=== PATIENT | female | born 1945 | race Caucasian/White ===

== ENCOUNTER 2019-03-15 13:26 | Inpatient (IN) | payer MEDICARE ==
[~2019-03-15] VITALS: Ht 157.5 cm; Wt 70.0 kg
[~2019-03-15 13:26] MED LIST: ADALAT CC60 MG PO; ATIVAN0.5 MG PO; CHERATUSSIN OR; CIPROFLOXACN500 MG PO; Levaquin OR; MEDDOSEPAK PO; PAXIL30 MG PO; PREMARIN0.625 MG PO; PROAIR HFA IN; PULMICORT180 MCG IN; ROBITUSSIN AC10 ML PO; ROCEPHIN 1 GM1 GM IM; SIMVASTATIN40 MG PO; SYMBICORT1 AE1 IN; TESSALON PER100 MG PO
--- NOTE | 2019-03-15 14:05 | NUR ---
PT IN NO DISTRESS IN TRIAGE, RESP EVEN AND UNLABORED. WHEN PT MOVING ABOUT TO GET IN TO BED AND GOWN, BECAME DYSPNEIC AND O2 SAT DIPPED INTO MID 80'2. O2 APPLIED, EDP NOTIFIED AND NEB TX STARTED
--- NOTE | 2019-03-15 14:50 | NUR ---
PT TO RADIOLOGY AT THIS TIME VIA WC IN STABLE CONDITION
--- NOTE | 2019-03-15 15:11 | NUR ---
PT MEDICATED WITH TYLENOL AND MOTRIN PER MAR FOR TEMP; IVF INFUSING; WILL CONTINUE TO MONITOR
[2019-03-15 15:43] LABS: HEMATOCRIT 44.8 % (37.0-47.0); HEMOGLOBIN 14.3 g/dl (12.0-16.0); IMMATURE GRANULOCYTES 0.2 % (0.0-5.0); MEAN CELL VOLUME 96.8 fL CALC (80.0-100.0); MEAN CORPUSCULAR HGB 30.9 pG CALC (26.0-32.0); MEAN CORPUSCULAR HGB CONC 31.9 g/L CALC (32.0-36.0); NEUT# 7.32 thou/uL (2.00-7.15); RED BLOOD COUNT 4.63 mill/uL (4.20-5.60); RED CELL DISTRI WIDTH 12.4 % (11.5-15.5)
--- NOTE | 2019-03-15 15:59 | NUR ---
[facility] LOWERY AT BEDSIDE TO DISCUSS POC AND FINDINGS; VSS WILL CONTINUE TO MONITOR
[2019-03-15 16:09] LABS: ALBUMIN 4.3 g/dL (3.2-5.0); ALKALINE PHOSPHATASE 303 u/l (38-126); ANION GAP 19 (6-22 (CALC)); BILIRUBIN, TOTAL 1.1 mg/dL (0.0-1.4); BUN 10 mg/dL (8-23); BUN/CREATININE RATIO 19 (12-20 (CALC)); CARBON DIOXIDE 21 mmol/l (22-30); CHLORIDE 102 mmol/l (95-108); CREATININE 0.5 mg/dL (0.5-1.0); GFR > 60 ML/MIN (>=60 (CALC)); GFR FOR AFR.AMER. > 60 ML/MIN (>=60 (CALC)); POTASSIUM 5.1 mmol/l (3.5-5.1); SGOT/AST 128 u/l (9-36); SODIUM 137 mmol/l (137-146); TOTAL PROTEIN 7.8 g/dL (6.3-8.2)
--- NOTE | 2019-03-15 17:00 | NUR ---
PT ADVISED OF POC AND PLAN TO ADMIT; PT VERBALIZES UNDERSTANDING; VSS; WILL CONTINUE TO MONITOR
[2019-03-15 17:10] LABS: URINE BILIRUBIN - DIPSTICK NEGATIVE (NEGATIVE); URINE BLOOD DIPSTICK TRACE-INTACT (NEGATIVE); URINE COLOR YELLOW; URINE GLUCOSE - DIPSTICK NEGATIVE (NEGATIVE); URINE KETONE TRACE mg/dL (NEGATIVE); URINE LEUK ESTERASE NEGATIVE (NEGATIVE); URINE NITRITE - DIPSTICK NEGATIVE (Negative); URINE PROTEIN - DIPSTICK NEGATIVE (NEG-TRACE); URINE SPECIFIC GRAVITY >=1.030; URINE UROBILINOGEN - DIPSTICK 0.2 E.U./dL (0.2)
--- NOTE | 2019-03-15 18:00 | NUR ---
PT SITTING UP ON STRETCHER; O2 NC IN PLACE; MONITORING DEVICES IN PLACE; PT C/O FEELING TIRED BUT NOT ABLE TO SLEEP; VSS WILL CONTINUE TO MONITOR
--- NOTE | 2019-03-15 19:00 | NUR ---
REPORT GIVEN TO GIA JJ; ATTEMPTED TO CALL REPORT TO [facility]
--- NOTE | 2019-03-15 19:21 | NUR ---
REPORT TO GIA CABRAL
--- NOTE | 2019-03-15 20:20 | NUR ---
PT TRANSPORTED TO [facility] RM 269 ON O2 VIA STRETCHWER WITH FACE MASK IN STABLE CONDITIOPN
[2019-03-15 20:30] VITALS: BP 133/83
--- NOTE | 2019-03-15 20:36 | NUR ---
PT ARRIVED TO THE FLOOR VIA STRETCHER ACCOMPANIED BY ED STAFF, PT IS ALERT AND ORIENTED. PT SOB. PT AMBULATED FROM STRETCHER TO BED. PT ASSISTED TO THE BATHROOM AND BACK TO BED. VS OBTAINED AND ASSESSMENT COMPLETED. PT REPORTS FEELING ANXIOUS, MD TO BE NOTIFIED. WHEEZES NOTED THROUGH OUT LUNGS. PEDAL PULSES WEAK. PT DENIES ANY PAIN AT THIS TIME. CALL RESENDIZ WITHIN REACH. PT ORIENTED TO ROOM AND CALL RESENDIZ SYSTEM. TELE IN PLACE. WILL CONTINUE TO MONITOR.
--- NOTE | 2019-03-16 00:02 | NUR ---
PT SITTING ON THE SIDE OF THE BED. PT REPORTS USING THE TRASH CAN TO PEE IN STATING "I COULDN'T MAKE IT TO THE BATHROOM IN TIME SO I USED THE TRASH CAN." PT CLEANED UP LINENS CHANGED. SAFETY PRECAUTIONS IN PLACE. WILL CONTINUE TO MONITOR.
--- NOTE | 2019-03-16 04:07 | NUR ---
PT RESTING IN BED. RESPIRATIONS LABORED ON O2 @ 2L VIA NC. TELE IN PLACE. CALL ASTRID MCKEON. WILL CONTINUE TO MONITOR.
[2019-03-16 05:50] LABS: HEMATOCRIT 47.1 % (37.0-47.0); HEMOGLOBIN 15.2 g/dl (12.0-16.0); IMMATURE GRANULOCYTES 0.3 % (0.0-5.0); MEAN CELL VOLUME 95.7 fL CALC (80.0-100.0); MEAN CORPUSCULAR HGB 30.9 pG CALC (26.0-32.0); MEAN CORPUSCULAR HGB CONC 32.3 g/L CALC (32.0-36.0); NEUT# 8.91 thou/uL (2.00-7.15); RED BLOOD COUNT 4.92 mill/uL (4.20-5.60); RED CELL DISTRI WIDTH 12.4 % (11.5-15.5)
[2019-03-16 06:22] LABS: BUN 7 mg/dL (8-23); BUN/CREATININE RATIO 15 (12-20 (CALC)); CARBON DIOXIDE 22 mmol/l (22-30); CHLORIDE 107 mmol/l (95-108); CREATININE 0.5 mg/dL (0.5-1.0); GFR > 60 ML/MIN (>=60 (CALC)); GFR FOR AFR.AMER. > 60 ML/MIN (>=60 (CALC)); SODIUM 141 mmol/l (137-146)
[2019-03-16 06:26] LABS: ANION GAP 16 (6-22 (CALC)); POTASSIUM 3.9 mmol/l (3.5-5.1)
--- NOTE | 2019-03-16 08:00 | NUR ---
PT RESTING IN BED, NO SIGNS OF DISTRESS NOTED, RESP EVEN AND UNLABORED. PT APPEARS VERY LETHARGIC, EASILY AROUSED TO VERBAL STIMULI. PT WEARING 02 2L NC. DISCUSSED POC, PT VERBALIZED UNDERSTANDING. VSS, AUDIBLE WHEEZES HEARD. ASSESSMENT COMPLETED, CALL LIGHT IN REACH,CONTINUE TO MONITOR.
[2019-03-16 08:07] VITALS: BP 131/68
--- NOTE | 2019-03-16 10:00 | NUR ---
PT RESTING IN BED, MEDICATED PER MAR, VOICES NO NEEDS OR COMPLAINTS AT THIS TIME, CALL LIGHT IN REACH,CONTINUE TO MONITOR.
--- NOTE | 2019-03-16 14:30 | NUR ---
PT RESTING IN BED, NO SIGNS OF DISTRESS NOTED, RESP EVEN AND UNLABORED. IV ZITHROMYCIN INITIATED. PT VOICES NO NEEDS OR COMPLAINTS AT THIS TIME. CALL LIGHT IN REACH,CONTINUE TO MONITOR.
[2019-03-16 15:59] VITALS: BP 105/69
--- NOTE | 2019-03-16 18:20 | NUR ---
PT OUT OF SHOWER, IVF CONTINUED, PT VOICES NO NEEDS OR COMPLAINTS AT THIS TIME, CALL LIGHT IN REACH,CONTINUE TO MONITOR.
[2019-03-16 18:35] VITALS: BP 126/77
--- NOTE | 2019-03-16 21:14 | NUR ---
PT RESTING IN BED. ALERT AND ORIENTED. RESPIRATIONS EVEN AND UNLABORED ON O2 @L 2L VIA NC. PEDAL PULSES STRONG. PT DENIES ANY PAIN OR DISCOMFORT AT THIS TIME. TELE IN PLACE. PT PROVIDED WITH A BLANKET PER REQUEST. SAFETY PRECAUTIONS IN PLACE. WILL CONTINUE TO MONITOR.
[2019-03-16 23:20] VITALS: BP 99/55
--- NOTE | 2019-03-17 00:19 | NUR ---
PT RESTING IN BED, RESPIRATIONS EVEN AND UNLABORED ON O2 @ 2L VIA NC. TELE IN PLACE. CALL RESENDIZ WITHIN REACH WILL CONTINUE TO MONITOR
[2019-03-17 03:43] VITALS: BP 105/63
--- NOTE | 2019-03-17 03:58 | NUR ---
PT RESTING IN BED. RESPIRATIONS EVEN AND UNLABORED ON O2 @ 2L VIA NC. TELE IN PLACE. WILL CONTINUE TO MONITOR.
[2019-03-17 05:38] LABS: ALKALINE PHOSPHATASE 206 u/l (38-126); BUN 8 mg/dL (8-23); BUN/CREATININE RATIO 21 (12-20 (CALC)); CHLORIDE 106 mmol/l (95-108); CREATININE 0.4 mg/dL (0.5-1.0); GFR > 60 ML/MIN (>=60 (CALC)); GFR FOR AFR.AMER. > 60 ML/MIN (>=60 (CALC)); POTASSIUM 3.4 mmol/l (3.5-5.1); SGOT/AST 73 u/l (9-36); SODIUM 140 mmol/l (137-146)
[2019-03-17 06:10] LABS: ANION GAP 10 (6-22 (CALC)); BILIRUBIN, TOTAL 0.4 mg/dL (0.0-1.4); CARBON DIOXIDE 27 mmol/l (22-30); TOTAL PROTEIN 5.7 g/dL (6.3-8.2)
[2019-03-17 08:00] VITALS: BP 126/60
--- NOTE | 2019-03-17 08:00 | NUR ---
ASLEEP ON ROUNDS, AWAKENS TO NAME. RESP NON-LABORED AT REST. BREATH SOUNDS WITH WHEEZES THROUGHOUT LUNG BOO. PATIENT UP TO USE BSC, DYSPNEIC WITH EXERTION WITH FAINT AUDIBLE WHEEZE. RECOVERS QUICKLY WITH REST. IV IN LH WITH NS INFUSING AT 80 ML/HR, SITE HEALTHY. DISCUSSED PLAN OF CARE. DENIES NEEDS AT THIS TIME. CALL RESENDIZ IN REACH.
[2019-03-17 11:00] VITALS: BP 129/72
--- NOTE | 2019-03-17 12:30 | NUR ---
RESTING IN BED. UP TO BSC INDEPENDENTLY VOIDING QS. REMAINS ON DROPLET ISOLATION. PATIENT NAPPIN LUKASZ AND OFF.
[2019-03-17 14:50] VITALS: BP 110/59
--- NOTE | 2019-03-17 16:05 | NUR ---
NAPPING MOST OF THE AFTERNOON. NO COMPLAINTS VOICED. IV SITE BENIGN IN LH.
[2019-03-17 18:39] VITALS: BP 111/65
--- NOTE | 2019-03-17 19:15 | NUR ---
REPORT RECEIVED FROM GIA JAFFE. PT RESTING IN BED. NO S/S OF DISTRESS AT THIS TIME. SAFETY PRECAUTIONS IN PLACE. WILL CONTINUE TO MONITOR.
--- NOTE | 2019-03-17 22:15 | NUR ---
PT RESTING IN BED. RESPIRATIONS EVEN AND UNLABORED ON O2 @ 2L VIA NC. WHEEZES NOTED THROUGH OUT LUNGS. PEDAL PUSLE STRONG. PT DENIES ANY PAIN OR DISCOMFORT AT THIS TIME. SAFETY PRECAUTIONS IN PLACE. WILL CONTINUE TO MONITOR.
[2019-03-17 23:52] VITALS: BP 111/61
--- NOTE | 2019-03-18 01:05 | NUR ---
PT UP TO BSC, PT ENCOURAGED TO CALL FOR ASSISTANCE IF NEEDED. SAFETY PRECAUTIONS IN PLACE. WILL CONTINUE TO MONITOR.
--- NOTE | 2019-03-18 03:58 | NUR ---
PT RESTING IN BED RESPIRATIONS EVEN AND UNABORED ON O2 @ 2L VIA NC. TELE IN PLACE. CALL RESENDIZ WITHIN REACH. WILL CONTINUE TO MONITOR.
[2019-03-18 04:01] VITALS: BP 138/74
[2019-03-18 05:57] LABS: ANION GAP 15 (6-22 (CALC)); BUN 8 mg/dL (8-23); BUN/CREATININE RATIO 22 (12-20 (CALC)); CARBON DIOXIDE 27 mmol/l (22-30); CHLORIDE 103 mmol/l (95-108); CREATININE 0.3 mg/dL (0.5-1.0); GFR > 60 ML/MIN (>=60 (CALC)); GFR FOR AFR.AMER. > 60 ML/MIN (>=60 (CALC)); MAGNESIUM 1.6 mg/dL (1.6-2.3); POTASSIUM 3.3 mmol/l (3.5-5.1); SODIUM 142 mmol/l (137-146)
--- NOTE | 2019-03-18 08:00 | NUR ---
SITTING UP IN BED EATING BREAKFAST. NO COMPLAINTS VOICED AT THIS TIME. DISCUSSED PLAN OF CARE. CALL ASTRID IN [facility].
[2019-03-18 09:00] VITALS: BP 157/74
--- NOTE | 2019-03-18 09:00 | NUR ---
RESTING IN BED. RESP UNLABORED AT REST BUT EASILY DSYPNEIC WITH LEAST EXERTION. USING O2 AT 2 L NC. BREATH SOUNDS CONTINUE TO REVEAL WHEEZES AND DIMINISHED BREATH SOUNDS. IV IN LH, SITE BENIGN, NS INFUSING AT 80 ML/HR. DISCUSSED FLU AND PNEUMONIA VACCINE AND PROVIDED WITH PRINTED EDUCATION MATERIAL ON BOTH. PATIENT SIGNED CONSENT FOR VACCINES.
[2019-03-18 11:23] VITALS: BP 122/70
--- NOTE | 2019-03-18 12:48 | NUR ---
RESTING IN BED. CONTINUES WITH GARCIA. SITS AT SIDE OF BED FOR MEALS. UP TO BS INDEPENDENTLY.
[2019-03-18 15:00] VITALS: BP 116/66
--- NOTE | 2019-03-18 16:30 | NUR ---
NAPPING ON AND OFF THIS AFTERNOON. HAS VISITOR NOW.
[2019-03-18 18:48] VITALS: BP 132/78
--- NOTE | 2019-03-18 19:08 | NUR ---
REPORT RECEIVED FROM GIA JAFFE. PT RESTING IN BED, NO S/S OF DISTRESS AT THIS TIME. SAFETY PRECAUTIONS IN PLACE. WILL CONTINUE TO MONITOR.
--- NOTE | 2019-03-18 20:30 | NUR ---
PT RESTING IN BED ALERT AND ORIENTED. RESPIRATIONS EVEN AND UNLABORED ON O2 @ 2L VIA NC. LUNGS SOUND DIMINISHED. PEDAL PULSES STRONG. PT DENIES ANY PAIN OR DISCOMFORT AT THIS TIME. TELE IN PLACE. CALL RESENDIZ WITHIN REACH. WILL CONTINUE TO MONITOR.
--- NOTE | 2019-03-19 00:10 | NUR ---
PT RESTING IN BED. RESPIRATIONS EVEN AND UNLABORED ON O2 @ 2L VIA NC. NO S/S OF DISTRESS AT THIS TIME. SAFETY PRECAUTIONS IN PLACE. WILL CONTINUE TO MONITOR.
[2019-03-19 00:15] VITALS: BP 130/69
[2019-03-19 03:18] VITALS: BP 114/66
--- NOTE | 2019-03-19 04:25 | NUR ---
PT RESTING IN BED. RESPIRATIONS EVEN AND UNLABORED ON O2 @ 2L VIA NC. TELE IN PLACE. WILL CONTINUE TO MONITOR.
[2019-03-19 05:13] LABS: IMMATURE GRANULOCYTES 0.3 % (0.0-5.0); MEAN CELL VOLUME 95.2 fL CALC (80.0-100.0); MEAN CORPUSCULAR HGB CONC 32.6 g/L CALC (32.0-36.0); NEUT# 4.72 thou/uL (2.00-7.15); RED BLOOD COUNT 4.19 mill/uL (4.20-5.60); RED CELL DISTRI WIDTH 12.6 % (11.5-15.5)
[2019-03-19 05:21] LABS: HEMATOCRIT 39.9 % (37.0-47.0)
[2019-03-19 05:33] LABS: ANION GAP 10 (6-22 (CALC)); BUN 9 mg/dL (8-23); BUN/CREATININE RATIO 29 (12-20 (CALC)); CARBON DIOXIDE 31 mmol/l (22-30); CHLORIDE 102 mmol/l (95-108); CREATININE 0.3 mg/dL (0.5-1.0); GFR > 60 ML/MIN (>=60 (CALC)); GFR FOR AFR.AMER. > 60 ML/MIN (>=60 (CALC)); MAGNESIUM 1.5 mg/dL (1.6-2.3); POTASSIUM 3.1 mmol/l (3.5-5.1); SODIUM 140 mmol/l (137-146)
[2019-03-19 07:20] VITALS: BP 123/69
--- NOTE | 2019-03-19 07:20 | NUR ---
ASLEEP ON ROUNDS. AWAKENS TO NAME. VSS. RESP EVEN AND UNLABORED AT REST. BREATH SOUNDS DECREASED THROUGHOUT LUNG BOO. MOIST COUGH NOTED. LFA IV SITE HEALTHY WITH NS INFUSING AT 80 ML/HR. DISCUSSED PLAN OF CARE. QUESTIONS ANSWERED REGARDING POSSIBLE DC TO HOME TODAY. CALL RESENDIZ IN REACH.
[2019-03-19 09:17] VITALS: BP 123/69
--- NOTE | 2019-03-19 12:15 | NUR ---
SITTING AT SIDE OF BED EATING LUNCH. DR YEPEZ VISITED PATIENT.
[2019-03-19] MEDS ORDERED: TAM75CAP PO (13:15)
[2019-03-19] MEDS ORDERED: LEVAQUIN750 MG PO (13:16)
[2019-03-19] MEDS ORDERED: PREDNISONE10 MG PO (13:16)
[2019-03-19] MEDS ORDERED: IPRATROPIU0.5 MG/3 M IN (15:47)
== END 2019-03-19 19:15 | disposition home or self-care (01) | DRG 871 ==
LOC: ED 13:26 → ED-I 16:56 → ED 17:04 → MS2 17:05 → ED-I 17:05 → MS2 18:49
PROVIDERS: Nurse Practitioner Family; ADMIT Internal Medicine; ATTEND Internal Medicine
PROC: 3E02340 Introduction of Influenza Vaccine into Muscle, Percutaneous Approach (ICD-10-PCS; principal; 2019-03-18)
PROC: 3E0234Z Introduction of Serum, Toxoid and Vaccine into Muscle, Percutaneous Approach (ICD-10-PCS; 2019-03-18)
DX: A41.9 Sepsis, unspecified organism (principal); J96.21 Acute and chronic respiratory failure with hypoxia; K92.1 Melena; J10.1 Influenza due to other identified influenza virus with other respiratory manifestations; R65.20 Severe sepsis without septic shock; J43.9 Emphysema, unspecified; I10 Essential (primary) hypertension; F32.9 Major depressive disorder, single episode, unspecified; E87.6 Hypokalemia; F41.9 Anxiety disorder, unspecified; E78.5 Hyperlipidemia, unspecified; Z87.891 Personal history of nicotine dependence; Z23 Encounter for immunization
CPT/HCPCS: J1650; J3475

== ENCOUNTER 2020-05-18 07:18 | Inpatient (IN) | payer MEDICARE ==
[~2020-05-18] VITALS: Ht 152.4 cm; Wt 64.8 kg
[~2020-05-18 07:18] MED LIST changes: +B121000 MC1 PO; +D32000 UNIT PO; +IPRATROPIU0.5 MG/3 M IN; +LEVAQUIN750 MG PO; +LISINOPRIL10 MG PO; +OMEPRAZOLE DR40 MG PO; +PREDNISONE10 MG PO; +TAM75CAP PO; +[UNRECOGNIZED DRUG - CODE] PO
[2020-05-18 14:00] VITALS: BP 178/89
[2020-05-18 21:24] VITALS: BP 146/68
[2020-05-18 22:00] VITALS: BP 134/72
[2020-05-19] VITALS (7 sets, daily range): BP systolic 105–150; BP diastolic 53–96
[2020-05-19 05:33] LABS: HEMOGLOBIN 12.8 g/dl (12.0-16.0); MEAN CELL VOLUME 95.8 fL CALC (80.0-100.0); MEAN CORPUSCULAR HGB 31.4 pG CALC (26.0-32.0); MEAN CORPUSCULAR HGB CONC 32.8 g/dL CAL (32.0-36.0); RED BLOOD COUNT 4.07 mill/uL (4.20-5.60)
[2020-05-19 06:06] LABS: ANION GAP 12 (6-22 (CALC)); BUN 10 mg/dL (8-23); BUN/CREATININE RATIO 24 (12-20 (CALC)); CARBON DIOXIDE 27 mmol/l (22-30); CHLORIDE 101 mmol/l (95-108); CREATININE 0.4 mg/dL (0.5-1.0); GFR > 60 ML/MIN (>=60 (CALC)); GFR FOR AFR.AMER. > 60 ML/MIN (>=60 (CALC)); MAGNESIUM 1.6 mg/dL (1.6-2.3); POTASSIUM 3.6 mmol/l (3.5-5.1); SODIUM 136 mmol/l (137-146)
[2020-05-20 01:00] VITALS: BP 108/57
[2020-05-20 03:27] VITALS: BP 109/69
[2020-05-20 05:00] VITALS: BP 109/58
[2020-05-20 05:22] LABS: HEMATOCRIT 36.8 % (37.0-47.0); HEMOGLOBIN 11.8 g/dl (12.0-16.0); IMMATURE GRANULOCYTES 1.1 % (0.0-5.0); MEAN CELL VOLUME 96.1 fL CALC (80.0-100.0); MEAN CORPUSCULAR HGB 30.8 pG CALC (26.0-32.0); MEAN CORPUSCULAR HGB CONC 32.1 g/dL CAL (32.0-36.0); NEUT# 10.16 thou/uL (2.00-7.15); RED BLOOD COUNT 3.83 mill/uL (4.20-5.60); RED CELL DISTRI WIDTH 14.3 % (11.5-15.5)
[2020-05-20 05:46] LABS: ANION GAP 7 (6-22 (CALC)); BUN 16 mg/dL (8-23); BUN/CREATININE RATIO 31 (12-20 (CALC)); CARBON DIOXIDE 32 mmol/l (22-30); CHLORIDE 103 mmol/l (95-108); CREATININE 0.5 mg/dL (0.5-1.0); GFR > 60 ML/MIN (>=60 (CALC)); GFR FOR AFR.AMER. > 60 ML/MIN (>=60 (CALC)); POTASSIUM 3.6 mmol/l (3.5-5.1); SODIUM 138 mmol/l (137-146)
[2020-05-20 07:00] VITALS: BP 113/55
[2020-05-20] MEDS ORDERED: AZITHROMYCIN500 MG PO (10:18)
[2020-05-20] MEDS ORDERED: MEDDOSEPAK PO (10:19)
[2020-05-20 13:30] VITALS: BP 148/60
== END 2020-05-20 13:30 | disposition home or self-care (01) | DRG 205 ==
LOC: ENDO 07:18 → ORM 09:35 → ENDO 09:35 → ORM 09:45 → ENDO 09:45 → ICU 12:18 → ENDO 05-19 08:59 → ICU 05-19 09:00
PROVIDERS: ADMIT Internal Medicine; ATTEND Internal Medicine
PROC: 06L38CZ Occlusion of Esophageal Vein with Extraluminal Device, Via Natural or Artificial Opening Endoscopic (ICD-10-PCS; principal; 2020-05-18)
PROC: 0DBK8ZX Excision of Ascending Colon, Via Natural or Artificial Opening Endoscopic, Diagnostic (ICD-10-PCS; 2020-05-18)
PROC: 0DBL8ZX Excision of Transverse Colon, Via Natural or Artificial Opening Endoscopic, Diagnostic (ICD-10-PCS; 2020-05-18)
PROC: 0DBN8ZX Excision of Sigmoid Colon, Via Natural or Artificial Opening Endoscopic, Diagnostic (ICD-10-PCS; 2020-05-18)
PROC: 0DBM8ZX Excision of Descending Colon, Via Natural or Artificial Opening Endoscopic, Diagnostic (ICD-10-PCS; 2020-05-18)
DX: J95.89 Other postprocedural complications and disorders of respiratory system, not elsewhere classified (principal); J96.21 Acute and chronic respiratory failure with hypoxia; I85.10 Secondary esophageal varices without bleeding; K76.6 Portal hypertension; T17.908A Unspecified foreign body in respiratory tract, part unspecified causing other injury, initial encounter; K74.60 Unspecified cirrhosis of liver; K31.89 Other diseases of stomach and duodenum; J43.9 Emphysema, unspecified; I10 Essential (primary) hypertension; E78.5 Hyperlipidemia, unspecified; F41.9 Anxiety disorder, unspecified; K29.80 Duodenitis without bleeding; K44.9 Diaphragmatic hernia without obstruction or gangrene; K29.70 Gastritis, unspecified, without bleeding; K64.4 Residual hemorrhoidal skin tags; K57.30 Diverticulosis of large intestine without perforation or abscess without bleeding; K64.8 Other hemorrhoids; I86.8 Varicose veins of other specified sites; D12.2 Benign neoplasm of ascending colon; D12.4 Benign neoplasm of descending colon; D12.5 Benign neoplasm of sigmoid colon; D12.3 Benign neoplasm of transverse colon; F32.9 Major depressive disorder, single episode, unspecified; Y84.8 Other medical procedures as the cause of abnormal reaction of the patient, or of later complication, without mention of misadventure at the time of the procedure; Y92.234 Operating room of hospital as the place of occurrence of the external cause; Z86.010 Personal history of colon polyps; Z87.891 Personal history of nicotine dependence; Z20.822 Contact with and (suspected) exposure to COVID-19
CPT/HCPCS: J1650; J2060

== ENCOUNTER 2021-05-07 10:39 | Emergency (ER) | payer MEDICARE ==
[~2021-05-07] VITALS: Ht 152.4 cm; Wt 64.0 kg
[~2021-05-07 10:39] MED LIST changes: +AZITHROMYCIN500 MG PO
[2021-05-07 15:17] LABS: HEMATOCRIT 41.9 % (37.0-47.0); HEMOGLOBIN 13.9 g/dl (12.0-16.0); IMMATURE GRANULOCYTES 0.3 % (0.0-5.0); MEAN CELL VOLUME 97.2 fL CALC (80.0-100.0); MEAN CORPUSCULAR HGB 32.3 pG CALC (26.0-32.0); MEAN CORPUSCULAR HGB CONC 33.2 g/dL CAL (32.0-36.0); NEUT# 5.66 thou/uL (2.00-7.15); RED BLOOD COUNT 4.31 mill/uL (4.20-5.60)
[2021-05-07 15:27] LABS: ALBUMIN 3.8 g/dL (3.2-5.0); ALKALINE PHOSPHATASE 205 u/l (38-126); ANION GAP 9 (6-22 (CALC)); BILIRUBIN, TOTAL 3.9 mg/dL (0.0-1.4); BUN 7 mg/dL (8-23); BUN/CREATININE RATIO 11 (12-20 (CALC)); CARBON DIOXIDE 29 mmol/l (22-30); CHLORIDE 100 mmol/l (95-108); CREATININE 0.6 mg/dL (0.5-1.0); GFR > 60 ML/MIN (>=60 (CALC)); GFR FOR AFR.AMER. > 60 ML/MIN (>=60 (CALC)); POTASSIUM 3.6 mmol/l (3.5-5.1); SGOT/AST 48 u/l (9-36); SODIUM 134 mmol/l (137-146); TOTAL PROTEIN 6.9 g/dL (6.3-8.2)
[2021-05-07] MEDS ORDERED: CLEOCIN300 MG PO (18:31)
[2021-05-07 19:10] VITALS: BP 120/54
== END 2021-05-07 19:11 | disposition home or self-care (01) ==
LOC: ED 10:39
PROVIDERS: Emergency Medicine
DX: L03.116 Cellulitis of left lower limb (principal); S80.812A Abrasion, left lower leg, initial encounter; I10 Essential (primary) hypertension; J44.9 Chronic obstructive pulmonary disease, unspecified; F41.9 Anxiety disorder, unspecified; F32.A Depression, unspecified; W22.03XA Walked into furniture, initial encounter; Y93.9 Activity, unspecified

== ENCOUNTER 2021-06-08 21:35 | Observation (INO) | payer MEDICARE ==
[~2021-06-08] VITALS: Ht 152.4 cm; Wt 61.0 kg
[~2021-06-08 21:35] MED LIST changes: +CLEOCIN300 MG PO
--- NOTE | 2021-06-08 23:55 | NUR ---
PT ARRIVED TO UNIT VIA STRETCHER ACCOMPANIED BY [employer] TEAM. PT TRANSFER FROM STRETCHER TO BED. A&O X3 ORIENTED PT TO ROOM AND CALL LIGHT DISCUSED PLAN OF CARE. PT STATES SHE HAS NOT EATEN IN 2 DAYS MEAL TRAY PROVIDED. PT HAS 18G RFA FLUSHED WELL. 20 LFA FLUSHED WELL. DRESSING REMOVED FROM BLE NOTED WEEPING, REDNESS AND BLISTERS SEE CHART FOR PHOTOS. DRY DRESSING APPLIED. PT ADMISSION ASSESSMENT COMPLETED. PT VOICES NO NEEDS OR COMPLAITS AT THIS TIME. CALL LIGHT IN REACH. CONTINUE TO MONITOR.
[2021-06-09 00:21] VITALS: BP 135/55
[2021-06-09 04:07] VITALS: BP 126/60
--- NOTE | 2021-06-09 04:15 | NUR ---
PT RESTING IN BED WITH EYES CLOSED. RESP EVEN AND UNLABORED. NO S/S OF DISTRESS NOTED AT THIS TIME. CALL LIGHT IN REACH. CONTINIUE TO MONITOR.
[2021-06-09 05:45] LABS: IMMATURE GRANULOCYTES 0.3 % (0.0-5.0); MEAN CELL VOLUME 95.6 fL CALC (80.0-100.0); MEAN CORPUSCULAR HGB 33.1 pG CALC (26.0-32.0); MEAN CORPUSCULAR HGB CONC 34.7 g/dL CAL (32.0-36.0); NEUT# 10.81 thou/uL (2.00-7.15); RED BLOOD COUNT 3.44 mill/uL (4.20-5.60); RED CELL DISTRI WIDTH 14.2 % (11.5-15.5)
[2021-06-09 05:46] LABS: HEMATOCRIT 32.9 % (37.0-47.0); HEMOGLOBIN 11.4 g/dl (12.0-16.0)
[2021-06-09 06:11] LABS: ALKALINE PHOSPHATASE 143 u/l (38-126); ANION GAP 7 (6-22 (CALC)); BUN 12 mg/dL (8-23); BUN/CREATININE RATIO 25 (12-20 (CALC)); CARBON DIOXIDE 29 mmol/l (22-30); CHLORIDE 97 mmol/l (95-108); CREATININE 0.5 mg/dL (0.5-1.0); GFR > 60 ML/MIN (>=60 (CALC)); GFR FOR AFR.AMER. > 60 ML/MIN (>=60 (CALC)); POTASSIUM 3.1 mmol/l (3.5-5.1); SGOT/AST 36 u/l (9-36); SODIUM 129 mmol/l (137-146)
[2021-06-09 06:13] LABS: ALBUMIN 2.6 g/dL (3.2-5.0); TOTAL PROTEIN 5.1 g/dL (6.3-8.2)
[2021-06-09] MEDS ORDERED: FUROSEMIDE20 MG PO (07:19)
--- NOTE | 2021-06-09 08:55 | NUR ---
pt sleeping in bed. awakened to complete assessment. pt [facility]. a&o x3 clear/diminished breath sounds upon auscultation. jaundice appearance noted. abd slightly distended pt reports this being her normal and that she has "cirrhosis". active bowel sounds x4 quadrants. bilateral legs redenned in color, dressings in place bilaterally, light shadowing present in LLE dressing, legs wheeping. pt reports finishing outpt course of po abx with no improvement. x2 ivs from [employer] in place with one site infusing ivf per mar order. covid swab sample obtained. assessment completed. discussed poc. call light within reach.
--- NOTE | 2021-06-09 11:13 | NUR ---
DRESSING CHANGE COMPLETED AT THIS TIME. PT INSTRUCTED TO CALL WHEN WANTING TO GET TO THE BATHROOM, UPON ENTERING THE ROOM THIS LACING CUTTER NOTED URINE AND SMALL LIQUID BM. PT AGREEABLE TO PLAN. BILATERAL LEGS ELEVATED ON PILLOWS. PT REQUESTING BREATHING TX, ORDER OBTAINED FROM FOR PRN BREATHING TXS, RT NOTIFIED. CALL LIGHT WITHIN REACH.
[2021-06-09 11:22] LABS: URINE BILIRUBIN - DIPSTICK NEGATIVE (NEGATIVE); URINE BLOOD DIPSTICK NEGATIVE (NEGATIVE); URINE CLARITY CLEAR; URINE COLOR YELLOW; URINE GLUCOSE - DIPSTICK NEGATIVE (NEGATIVE); URINE KETONE NEGATIVE (NEGATIVE); URINE LEUK ESTERASE NEGATIVE (Negative); URINE NITRITE - DIPSTICK NEGATIVE (Negative); URINE PROTEIN - DIPSTICK NEGATIVE (NEG-TRACE); URINE UROBILINOGEN - DIPSTICK 0.2 E.U./dL (0.2)
[2021-06-09 14:24] VITALS: BP 126/60
--- NOTE | 2021-06-09 16:47 | NUR ---
pt sleeping in bed no distress noted. call light within reach.
--- NOTE | 2021-06-09 18:55 | NUR ---
RECEIVED REPORT FROM GIA CAMEJO.
[2021-06-09 20:01] VITALS: BP 108/52
--- NOTE | 2021-06-09 20:20 | NUR ---
PT IN BED; A&O X3. EVEN AND UNLABORED RESPIRATIONS; CLEAR LUNG SOUNDS UPON AUSCULTATION. ACTIVE BOWEL SOUNDS X4 QUADRANTS. IV SITE HEALTHY AND PATENT. EDEMA AND MODERATELY REDNESS ON BILATERAL LOWER EXTREMITIES; DRESSING CDI. NO DISTRESS NOTED. PT DENIES PAIN AT THIS MOMENT. PT INSTRUCTED TO CALL FOR ASSISTANCE WHEN GETTING UP TO RESTROOM; PT SHOWED UNDERSTANDING. SAFETY PRECAUTIONS IN PLACE. CALL LIGHT IN REACH.
--- NOTE | 2021-06-10 | NUR ---
PT SLEEPING. NO DISTRESS OR PAIN NOTED. LOWER EXTREMITIES ELEVATED ON PILLOW. SAFETY PRECAUTIONS IN PLACE. CALL LIGHT WITHIN REACH.
[2021-06-10 03:56] VITALS: BP 101/45
--- NOTE | 2021-06-10 04:10 | NUR ---
PT SLIGHTLY AWAKE. URINE ON THE FLOOR NOTED UPON ENTERING THE ROOM; INSTRUCTED PT TO ASK FOR ASSISTANCE WHEN USING THE BATHROOM; PT SHOWED UNDERSTANDING. NO DISTRESS NOTED. PT DENIES PAIN AT THE MOMENT. SAFETY PRECAUTIONS IN PLACE. CALL LIGHT WITHIN REACH.
[2021-06-10 05:10] LABS: HEMATOCRIT 35.5 % (37.0-47.0); HEMOGLOBIN 12.4 g/dl (12.0-16.0); IMMATURE GRANULOCYTES 0.3 % (0.0-5.0); MEAN CELL VOLUME 95.9 fL CALC (80.0-100.0); MEAN CORPUSCULAR HGB 33.5 pG CALC (26.0-32.0); MEAN CORPUSCULAR HGB CONC 34.9 g/dL CAL (32.0-36.0); NEUT# 12.17 thou/uL (2.00-7.15); RED BLOOD COUNT 3.7 mill/uL (4.20-5.60); RED CELL DISTRI WIDTH 14.4 % (11.5-15.5)
[2021-06-10 05:24] LABS: ANION GAP 12 (6-22 (CALC)); BUN 16 mg/dL (8-23); BUN/CREATININE RATIO 32 (12-20 (CALC)); CARBON DIOXIDE 26 mmol/l (22-30); CHLORIDE 98 mmol/l (95-108); CREATININE 0.5 mg/dL (0.5-1.0); GFR > 60 ML/MIN (>=60 (CALC)); GFR FOR AFR.AMER. > 60 ML/MIN (>=60 (CALC)); MAGNESIUM 1.6 mg/dL (1.6-2.3); POTASSIUM 3.3 mmol/l (3.5-5.1); SODIUM 133 mmol/l (137-146)
--- NOTE | 2021-06-10 05:59 | NUR ---
PNP CALL RECEIVED TO GIVE CRITICAL RESULT; PROCALCITONIN [phone]. [employer] NOTIFIED DR GRIFFITH ABOUT LAB CRITICAL RESULT; NO NEW ORDERS RECEIVED.
[2021-06-10 07:57] VITALS: BP 112/51
--- NOTE | 2021-06-10 08:28 | NUR ---
SHIFT CHANGE REPORT, PT ALERT AND ORIENTES TO PERSON AND PLACE ONLY,DENIES PAIN/DISCOMFORT, IVF INFUSING, DRESSINGS TO BLE CDI, ALL NEEDS ADDRESSED, CALL RESENDIZ IN REACH AND BED LOCKED IN LOWEST POSITION.
[2021-06-10] MEDS ORDERED: OMNICEF300 MG PO (11:30)
== END 2021-06-10 14:30 | disposition home or self-care (01) ==
LOC: MS2 21:35
PROVIDERS: ADMIT Internal Medicine; ATTEND Internal Medicine
DX: L03.116 Cellulitis of left lower limb (principal); L03.115 Cellulitis of right lower limb; E87.6 Hypokalemia; I10 Essential (primary) hypertension; J43.9 Emphysema, unspecified; E78.5 Hyperlipidemia, unspecified; F41.9 Anxiety disorder, unspecified; F32.A Depression, unspecified; Z87.891 Personal history of nicotine dependence; Z79.899 Other long term (current) drug therapy; Z20.822 Contact with and (suspected) exposure to COVID-19